=== PATIENT | male | born 1995 | race Caucasian/White ===

== ENCOUNTER 2018-01-27 17:16 | Emergency (ER) ==
[~2018-01-27] VITALS: Ht 182.9 cm; Wt 77.3 kg
== END 2018-01-27 17:50 | disposition home or self-care (01) ==
LOC: COL.ER 17:16
DX: F10.129 Alcohol abuse with intoxication, unspecified (principal)

== ENCOUNTER 2020-01-12 17:59 | Emergency (ER) | payer BC ==
[~2020-01-12] VITALS: Ht 27.9 cm; Wt 75.0 kg
[2020-01-12 18:34] VITALS: BP 136/85; TEMP 97.1
[2020-01-12 21:00] VITALS: PULSE 89
--- NOTE | 2020-01-14 12:38 | NUR ---
provided test results via phone -- questions answered -- recommendations for quarantine at home made---reminded patient someone from [facility] would be calling. John Jean RN
== END 2020-01-12 21:00 | disposition home or self-care (01) ==
LOC: COL.ER 17:59
DX: U07.1 COVID-19 (principal); Z88.0 Allergy status to penicillin; F17.290 Nicotine dependence, other tobacco product, uncomplicated